=== PATIENT | male | born 1940 | race African-American/Black ===

== ENCOUNTER 2017-12-28 11:01 | Emergency (ER) | payer MEDICARE ==
[~2017-12-28] VITALS: Ht 172.7 cm; Wt 100.0 kg
[2017-12-28] MEDS ORDERED: GABA-529 PO (11:06)
[2017-12-28] MEDS ORDERED: TIOT18CA3 IH (11:06)
[2017-12-28] MEDS ORDERED: LOSA25TA12 PO (11:06)
[2017-12-28 12:41] LABS: BASOPHILS % 0.2 % (0.0-2.0); EOSINOPHILS % 0.5 % (0.0-5.0); HEMATOCRIT. 38.2 % (42.0-52.0); HEMOGLOBIN. 12.8 g/dL (14.0-18.0); MEAN CORPUSCULAR HEMOGLOBIN 29.6 pg (28.0-32.0); MEAN CORPUSCULAR VOLUME 88.4 fL (80.0-94.0); MEAN PLATELET VOLUME 8.1 fl (7.4-10.4); MONOCYTES % 11.6 % (2.0-8.0); NEUTROPHILS % 66.7 % (40.0-76.0); PLATELET 169 x1000/uL (130-400); RED BLOOD CELL COUNT 4.32 mill/uL (4.7-6.1); RED CELL DISTRIBUTION WIDTH 14.9 % (11.6-14.6)
[2017-12-28 12:44] LABS: CHLORIDE 104 mEq/L (98-107)
[2017-12-28 12:45] LABS: PROTHROMBIN TIME 10.2 sec (9.1-11.1)
[2017-12-28 12:48] LABS: CLARITY URINE CLEAR (CLEAR); COLOR URINE YELLOW (YELLOW); KETONES URINE 1+ (NEGATIVE); LEUKOCYTE ESTERASE URINE NEGATIVE (NEGATIVE); NITRITE URINE NEGATIVE (NEGATIVE); OCCULT BLOOD URINE NEGATIVE (NEGATIVE); PH URINE 8.5 (4.5-8.0); PROTEIN URINE 3+ (NEGATIVE); SPECIFIC GRAVITY URINE 1.021 (1.005-1.030); UROBILINOGEN URINE 0.2 E.U./dL (0.2-1.0)
[2017-12-28] MEDS ORDERED: ALBUTEROL (0.083%) 2.5MG/3ML NEB HHN STA (13:33)
[2017-12-28] MEDS ORDERED: IPRATROPIUM BROMIDE (0.02%) 0.5MG/2.5ML NEB HHN STA (13:33)
[2017-12-28 15:52] VITALS: BP 128/90
== END 2017-12-28 15:56 | disposition home or self-care (01) ==
LOC: ER 11:01
DX: R55 Syncope and collapse (principal); R06.02 Shortness of breath; I44.0 Atrioventricular block, first degree; I49.3 Ventricular premature depolarization; D64.9 Anemia, unspecified; N28.9 Disorder of kidney and ureter, unspecified; E87.1 Hypo-osmolality and hyponatremia; J44.9 Chronic obstructive pulmonary disease, unspecified; F41.9 Anxiety disorder, unspecified; E11.9 Type 2 diabetes mellitus without complications; I10 Essential (primary) hypertension; E78.00 Pure hypercholesterolemia, unspecified; R56.9 Unspecified convulsions; Z79.899 Other long term (current) drug therapy
CPT/HCPCS: 36415; 71045; 80053; 81003; 83880; 84484; 85025; 85610; 93005; 94640; 99285; J7611

== ENCOUNTER 2018-01-10 11:17 | Emergency (ER) | payer MEDICARE ==
[~2018-01-10] VITALS: Ht 165.1 cm; Wt 110.0 kg
[~2018-01-10 11:17] MED LIST: GABA-529 PO; LOSA25TA12 PO; TIOT18CA3 IH
[2018-01-10] MEDS ORDERED: ONDANSETRON HCL 4MG/2ML INJ IV STA (11:44)
[2018-01-10] MEDS ORDERED: SODIUM CHLORIDE 0.9% 1,000 ML IV ONE (11:44)
[2018-01-10] MEDS ORDERED: MORPHINE SULFATE 4 MG/ML CPJ (NOT FOR IM USE) IV STA (11:44)
[2018-01-10 13:08] LABS: BASOPHILS % 0.3 % (0.0-2.0); EOSINOPHILS % 0.4 % (0.0-5.0); HEMATOCRIT. 38.7 % (42.0-52.0); HEMOGLOBIN. 12.7 g/dL (14.0-18.0); LYMPHOCYTES % 18.1 % (20.0-50.0); MEAN CORPUSCULAR HEMOGLOBIN 29.5 pg (28.0-32.0); MEAN CORPUSCULAR VOLUME 89.7 fL (80.0-94.0); MONOCYTES % 10.1 % (2.0-8.0); NEUTROPHILS % 71.1 % (40.0-76.0); RED BLOOD CELL COUNT 4.31 mill/uL (4.7-6.1)
[2018-01-10 13:09] LABS: CHLORIDE 109 mEq/L (98-107); PROTHROMBIN TIME 10.1 sec (9.1-11.1)
[2018-01-10 13:48] LABS: PLATELET 129 x1000/uL (130-400)
[2018-01-10 15:59] LABS: MEAN PLATELET VOLUME 9.5 fl (7.4-10.4); PLATELET ESTIMATE SLIGHTLY DECREASED
[2018-01-10] MEDS ORDERED: LORAZEPAM 0.5MG TABLET PO ONE (16:00)
[2018-01-10 17:49] LABS: CLARITY URINE CLEAR (CLEAR); COLOR URINE YELLOW (YELLOW); KETONES URINE TRACE (NEGATIVE); LEUKOCYTE ESTERASE URINE NEGATIVE (NEGATIVE); NITRITE URINE NEGATIVE (NEGATIVE); OCCULT BLOOD URINE NEGATIVE (NEGATIVE); PH URINE 7.5 (4.5-8.0); PROTEIN URINE 2+ (NEGATIVE); SPECIFIC GRAVITY URINE 1.017 (1.005-1.030); UROBILINOGEN URINE 0.2 E.U./dL (0.2-1.0)
[2018-01-10 18:04] VITALS: BP 132/62
== END 2018-01-10 18:08 | disposition home or self-care (01) ==
LOC: ER 11:40 → CANBEDREQ 18:14
DX: R10.12 Left upper quadrant pain (principal); R10.32 Left lower quadrant pain; G89.29 Other chronic pain; K59.00 Constipation, unspecified; E86.0 Dehydration; N43.3 Hydrocele, unspecified; N28.9 Disorder of kidney and ureter, unspecified; I11.9 Hypertensive heart disease without heart failure; J44.9 Chronic obstructive pulmonary disease, unspecified; F41.9 Anxiety disorder, unspecified; Z85.46 Personal history of malignant neoplasm of prostate; Z98.1 Arthrodesis status; Z87.81 Personal history of (healed) traumatic fracture
CPT/HCPCS: 36415; 74176; 76870; 80053; 81003; 83605; 83690; 85025; 85610; 93976; 96361; 96374; 96375; 99285; J2270; J2405; J7030

== ENCOUNTER 2018-10-05 09:28 | Emergency (ER) | payer BC, MEDICARE ==
[~2018-10-05] VITALS: Ht 167.6 cm; Wt 105.0 kg
[2018-10-05 10:05] VITALS: BP 155/83
== END 2018-10-05 10:50 | disposition home or self-care (01) ==
LOC: ER 09:28
DX: F41.0 Panic disorder [episodic paroxysmal anxiety] (principal)
CPT/HCPCS: 99284

== ENCOUNTER 2018-10-12 15:39 | Inpatient (IN) | payer MEDICARE, BC ==
[~2018-10-12] VITALS: Ht 165.1 cm; Wt 102.6 kg
[~2018-10-12 15:39] MED LIST changes: -LOSA25TA12 PO; +LOSA25TA26 PO
[2018-10-12 20:03] LABS: BASOPHILS % 0.5 % (0.0-2.0); EOSINOPHILS % 0.7 % (0.0-5.0); HEMATOCRIT. 35.7 % (42.0-52.0); LYMPHOCYTES % 22.7 % (20.0-50.0); MEAN CORPUSCULAR HEMOGLOBIN 29.9 pg (28.0-32.0); MEAN CORPUSCULAR VOLUME 89.3 fL (80.0-94.0); MEAN PLATELET VOLUME 7.9 fl (7.4-10.4); MONOCYTES % 8.9 % (2.0-8.0); NEUTROPHILS % 67.2 % (40.0-76.0); PLATELET 144 x1000/uL (130-400); RED CELL DISTRIBUTION WIDTH 14.9 % (11.6-14.6)
[2018-10-12 20:08] LABS: CHLORIDE 109 mEq/L (98-107)
[2018-10-12] MEDS ORDERED: LORAZEPAM 1MG TABLET ONE (20:20)
[2018-10-12] MEDS ORDERED: LORAZEPAM 1MG TABLET PO SCH (21:43)
[2018-10-12] MEDS ORDERED: ASPIRIN 325MG EC TABLET PO ONE (22:15)
[2018-10-12] MEDS ORDERED: LORAZEPAM 2MG/ML CPJ IV PRN (23:45)
[2018-10-12] MEDS ORDERED: CLONIDINE 0.1MG TABLET PO PRN (23:45)
[2018-10-12] MEDS ORDERED: MORPHINE SULFATE 2 MG/ML CPJ (NOT FOR IM USE) IV PRN (23:45)
[2018-10-12] MEDS ORDERED: HYDROCODONE/ACETAMINOPHEN 5/325MG TABLET PO PRN (23:45)
[2018-10-12] MEDS ORDERED: ACETAMINOPHEN 325MG TABLET PO PRN (23:45)
[2018-10-12] MEDS ORDERED: ONDANSETRON HCL 4MG/2ML INJ IV PRN (23:45)
[2018-10-12] MEDS ORDERED: DOCUSATE SODIUM 100MG CAPSULE PO PRN (23:45)
[2018-10-12] MEDS ORDERED: IPRATROPIUM/ALBUTEROL 0.5-3(2.5)MG/3ML NEB INH PRN (23:45)
[2018-10-12] MEDS ORDERED: GUAIFENESIN 200MG/10ML SUGAR FREE UDC PO PRN (23:45)
[2018-10-13 01:05] VITALS: BP 143/84
[2018-10-13] MEDS ORDERED: MORPHINE SULFATE 4 MG/ML CPJ (NOT FOR IM USE) IV PRN (01:48)
[2018-10-13 04:00] VITALS: BP 128/73
[2018-10-13] MEDS ORDERED: ASPI-1158 PO (05:37)
[2018-10-13] MEDS ORDERED: AMLO10TA80 PO (05:37)
[2018-10-13] MEDS ORDERED: LORA-249 PO (05:37)
[2018-10-13] MEDS ORDERED: FURO-152 PO (05:37)
[2018-10-13] MEDS ORDERED: TRAZ-251 PO (05:37)
[2018-10-13 08:00] VITALS: BP 129/76
[2018-10-13] MEDS ORDERED: ENOXAPARIN 40MG/0.4ML SYR SUBCUT SCH (09:00)
[2018-10-13 09:16] LABS: BASOPHILS % 0.3 % (0.0-2.0); EOSINOPHILS % 0.9 % (0.0-5.0); HEMATOCRIT. 35.6 % (42.0-52.0); HEMOGLOBIN. 11.7 g/dL (14.0-18.0); LYMPHOCYTES % 19.4 % (20.0-50.0); MEAN CORPUSCULAR HEMOGLOBIN 29.3 pg (28.0-32.0); MEAN CORPUSCULAR VOLUME 88.8 fL (80.0-94.0); MONOCYTES % 10.8 % (2.0-8.0); NEUTROPHILS % 68.6 % (40.0-76.0); PLATELET 164 x1000/uL (130-400); RED CELL DISTRIBUTION WIDTH 14.8 % (11.6-14.6)
[2018-10-13] MEDS: ASPIRIN 81MG EC TABLET PO SCH (09:18)
[2018-10-13] MEDS: ENOXAPARIN 30MG/0.3ML SYR SUBCUT SCH ×2 (09:19→21:58)
[2018-10-13] MEDS: AMLODIPINE 10MG TABLET PO SCH (09:20)
[2018-10-13 09:47] LABS: CHLORIDE 110 mEq/L (98-107)
[2018-10-13 09:55] LABS: HDL CHOLESTEROL 91 mg/dL (40-59); LDL CHOLESTEROL 78 mg/dL (5-100)
[2018-10-13] MEDS ORDERED: NA PHOS,M-B/NA PHOS,DI-BA ENEMA 118ML PR NR (11:00)
[2018-10-13] MEDS ORDERED: MAGNESIUM HYDROXIDE 400MG/5ML 30ML UDC PO PRN (11:00)
[2018-10-13] MEDS ORDERED: IPRATROPIUM/ALBUTEROL 0.5-3(2.5)MG/3ML NEB HHN PRN (11:00)
[2018-10-13] MEDS ORDERED: LACTULOSE 20G/30ML UDC PO NR (11:00)
[2018-10-13] MEDS ORDERED: BENZONATATE 100MG CAPSULE PO PRN (11:00)
[2018-10-13] MEDS ORDERED: DEXTROSE 50% WATER 50ML SYRINGE IV PRN (11:45)
[2018-10-13] MEDS: METHYLPREDNISOLONE SOD SUCC 40 MG/ML VIAL IV SCH (11:48)
[2018-10-13] MEDS: LORATADINE 10MG TABLET PO SCH (11:48)
[2018-10-13] MEDS ORDERED: MORPHINE SULFATE 2 MG/ML CPJ (NOT FOR IM USE) IV PRN (11:49)
[2018-10-13 12:17] VITALS: BP 130/65
[2018-10-13] MEDS: BLOOD SUGAR DIAGNOSTIC STRIP TEST SCH ×3 (12:20→21:17)
[2018-10-13] MEDS: INSULIN LISPRO 100 UNITS/ML SUBCUT SCH ×3 (12:50→22:15)
[2018-10-13 16:43] VITALS: BP 124/74
[2018-10-13 20:00] VITALS: BP 125/65
[2018-10-14] VITALS: BP 126/71
[2018-10-14 04:00] VITALS: BP 136/79
[2018-10-14] MEDS: BLOOD SUGAR DIAGNOSTIC STRIP TEST SCH ×2 (06:24→12:20)
[2018-10-14] MEDS: INSULIN LISPRO 100 UNITS/ML SUBCUT SCH ×2 (07:50→12:24)
[2018-10-14 09:00] VITALS: BP 123/58
[2018-10-14] MEDS: METHYLPREDNISOLONE SOD SUCC 40 MG/ML VIAL IV SCH (09:14)
[2018-10-14] MEDS: AMLODIPINE 10MG TABLET PO SCH (09:28)
[2018-10-14] MEDS: ASPIRIN 81MG EC TABLET PO SCH (09:28)
[2018-10-14] MEDS: ENOXAPARIN 30MG/0.3ML SYR SUBCUT SCH (09:28)
[2018-10-14] MEDS: LORATADINE 10MG TABLET PO SCH (09:30)
[2018-10-14] MEDS ORDERED: TRAMADOL 50MG TABLET PO PRN (09:30)
[2018-10-14 14:12] VITALS: BP 123/58
== END 2018-10-14 15:38 | disposition home or self-care (01) | DRG 202 ==
LOC: ER 16:05 → EDBEDREQ 22:40 → EDBEDREQTM 22:40 → SUPCPDRO 23:34 → ENRESERV 10-13 → 6WST 10-13 01:18
PROVIDERS: ADMIT Hospitalist; ATTEND Hospitalist
DX: J20.9 Acute bronchitis, unspecified (principal); J44.1 Chronic obstructive pulmonary disease with (acute) exacerbation; J44.0 Chronic obstructive pulmonary disease with (acute) lower respiratory infection; E11.9 Type 2 diabetes mellitus without complications; I11.0 Hypertensive heart disease with heart failure; F41.9 Anxiety disorder, unspecified; M19.90 Unspecified osteoarthritis, unspecified site; I50.9 Heart failure, unspecified; K59.00 Constipation, unspecified; Z85.46 Personal history of malignant neoplasm of prostate; Z86.73 Personal history of transient ischemic attack (TIA), and cerebral infarction without residual deficits; Z92.3 Personal history of irradiation; Z87.891 Personal history of nicotine dependence; Z79.899 Other long term (current) drug therapy
CPT/HCPCS: 36415; 71045; 80061; 82962; 83880; 84484; 93005; 93306; 93970; 94640; 99285; J1650; J1815; J2060; J2920; J7620

== ENCOUNTER 2018-12-26 00:29 | Emergency (ER) | payer MEDICARE, BC ==
[~2018-12-26] VITALS: Ht 165.1 cm; Wt 96.0 kg
[~2018-12-26 00:29] MED LIST changes: +AMLO10TA80 PO; +ASPI-1158 PO; +FURO-152 PO; -GABA-529 PO; +LORA-249 PO; +TRAZ-251 PO
[2018-12-26 02:23] LABS: BASOPHILS % 0.4 % (0.0-2.0); EOSINOPHILS % 0.9 % (0.0-5.0); HEMATOCRIT. 34.6 % (42.0-52.0); HEMOGLOBIN. 11.5 g/dL (14.0-18.0); LYMPHOCYTES % 17.2 % (20.0-50.0); MEAN CORPUSCULAR HEMOGLOBIN 29.9 pg (28.0-32.0); MEAN CORPUSCULAR VOLUME 90.3 fL (80.0-94.0); MEAN PLATELET VOLUME 7.2 fl (7.4-10.4); MONOCYTES % 10.8 % (2.0-8.0); NEUTROPHILS % 70.7 % (40.0-76.0); PLATELET 148 x1000/uL (130-400); RED BLOOD CELL COUNT 3.84 mill/uL (4.7-6.1)
[2018-12-26 02:29] LABS: CHLORIDE 110 mEq/L (98-107)
[2018-12-26 08:48] VITALS: BP 129/72
== END 2018-12-26 08:51 | disposition short-term general hospital (02) ==
LOC: ER 00:29 → CANBEDREQ 06:30 → ER 08:51
DX: R53.1 Weakness (principal); R27.0 Ataxia, unspecified; Z91.81 History of falling
CPT/HCPCS: 36415; 71045; 82962; 83880; 84484; 93005; 99285

== ENCOUNTER 2019-02-09 08:34 | Emergency (ER) | payer MEDICARE, BC ==
[~2019-02-09] VITALS: Ht 172.7 cm; Wt 97.0 kg
[2019-02-09 09:36] VITALS: BP 130/72
== END 2019-02-09 09:41 | disposition home or self-care (01) ==
LOC: ER 09:12
DX: F41.9 Anxiety disorder, unspecified (principal)
CPT/HCPCS: 99284

== ENCOUNTER 2019-04-17 11:15 | Emergency (ER) | payer MEDICARE, BC ==
[~2019-04-17] VITALS: Ht 165.1 cm; Wt 93.0 kg
[2019-04-17] MEDS ORDERED: AMLODIPINE 10MG TABLET PO ONE (12:45)
[2019-04-17] MEDS ORDERED: ACETAMINOPHEN 325MG TABLET PO ONE (12:45)
[2019-04-17 13:43] LABS: BASOPHILS % 0.3 % (0.0-2.0); EOSINOPHILS % 0.6 % (0.0-5.0); HEMATOCRIT. 35.3 % (42.0-52.0); HEMOGLOBIN. 11.6 g/dL (14.0-18.0); LYMPHOCYTES % 21.4 % (20.0-50.0); MEAN CORPUSCULAR HEMOGLOBIN 29.9 pg (28.0-32.0); MEAN CORPUSCULAR VOLUME 90.7 fL (80.0-94.0); MONOCYTES % 10.1 % (2.0-8.0); NEUTROPHILS % 67.6 % (40.0-76.0); PLATELET 169 x1000/uL (130-400); RED BLOOD CELL COUNT 3.89 mill/uL (4.7-6.1); RED CELL DISTRIBUTION WIDTH 15.6 % (11.6-14.6)
[2019-04-17 13:50] LABS: CHLORIDE 112 mEq/L (98-107)
[2019-04-17 14:44] VITALS: BP 141/78
== END 2019-04-17 14:51 | disposition home or self-care (01) ==
LOC: ER 11:15
DX: R07.89 Other chest pain (principal); F41.9 Anxiety disorder, unspecified
CPT/HCPCS: 36415; 71045; 83735; 84484; 93005; 99284

== ENCOUNTER 2019-12-13 11:59 | Inpatient (IN) | payer MEDICARE, BC ==
[~2019-12-13] VITALS: Ht 165.1 cm; Wt 95.3 kg
[2019-12-13 13:02] LABS: BASOPHILS % 0.3 % (0.0-2.0); EOSINOPHILS % 0.9 % (0.0-5.0); HEMATOCRIT. 34.1 % (42.0-52.0); HEMOGLOBIN. 11.2 g/dL (14.0-18.0); LYMPHOCYTES % 22.2 % (20.0-50.0); MEAN CORPUSCULAR HEMOGLOBIN 29.9 pg (28.0-32.0); MEAN CORPUSCULAR VOLUME 90.8 fL (80.0-94.0); MEAN PLATELET VOLUME 7.4 fl (7.4-10.4); MONOCYTES % 11.5 % (2.0-8.0); NEUTROPHILS % 65.1 % (40.0-76.0); PLATELET 154 x1000/uL (130-400); RED BLOOD CELL COUNT 3.76 mill/uL (4.7-6.1); RED CELL DISTRIBUTION WIDTH 15.8 % (11.6-14.6)
[2019-12-13 13:09] LABS: CHLORIDE 110 mEq/L (98-107)
[2019-12-13] MEDS ORDERED: ASPIRIN 325MG EC TABLET PO ONE (13:45)
[2019-12-13 17:57] VITALS: BP 121/57
[2019-12-13] MEDS ORDERED: ACETAMINOPHEN 325MG TABLET PO PRN (19:30)
[2019-12-13] MEDS ORDERED: LORAZEPAM 2MG/ML CPJ IV PRN (19:30)
[2019-12-13] MEDS ORDERED: GUAIFENESIN 200MG/10ML SUGAR FREE UDC PO PRN (19:30)
[2019-12-13] MEDS ORDERED: HYDRALAZINE 20MG/ML VIAL IV PRN (19:30)
[2019-12-13] MEDS ORDERED: CLONIDINE 0.1MG TABLET PO PRN (19:30)
[2019-12-13] MEDS ORDERED: DOCUSATE SODIUM 100MG CAPSULE PO PRN (19:30)
[2019-12-13] MEDS ORDERED: ONDANSETRON HCL 4MG/2ML INJ IV PRN (19:30)
[2019-12-13] MEDS ORDERED: MAGNESIUM/ALUMINUM HYDROXIDE/SIMETHICONE 30ML UDC PO PRN (19:30)
[2019-12-13] MEDS ORDERED: DIPHENHYDRAMINE 50MG/ML VIAL IV PRN (19:30)
[2019-12-13] MEDS ORDERED: IPRATROPIUM/ALBUTEROL 0.5-3(2.5)MG/3ML NEB HHN PRN (19:30)
[2019-12-13] MEDS ORDERED: HYDROCODONE/ACETAMINOPHEN 10/325MG TABLET PO PRN (19:44)
[2019-12-13] MEDS ORDERED: MORPHINE SULFATE 2 MG/ML CPJ (NOT FOR IM USE) IV PRN (19:44)
[2019-12-13 20:00] VITALS: BP 117/69
[2019-12-13] MEDS: ENOXAPARIN 40MG/0.4ML SYR SUBCUT SCH (21:14)
[2019-12-13] MEDS: SODIUM CHLORIDE 0.9% INJ 3ML FLUSH IVF SCH (21:17)
[2019-12-14] VITALS: BP 140/62
[2019-12-14 00:12] LABS: CREATINE KINASE 135 IU/L (39-308)
[2019-12-14 00:13] LABS: CREATINE KINASE MB FRACTION 1.6 ng/mL (0.5-3.6)
[2019-12-14 04:00] VITALS: BP 157/86
[2019-12-14 07:51] VITALS: BP 152/73
[2019-12-14] MEDS: SODIUM CHLORIDE 0.9% INJ 3ML FLUSH IVF SCH ×4 (09:03→20:38)
[2019-12-14] MEDS ORDERED: POLYETHYLENE GLYCOL 3350 (17GM) 1 DOSE PACK PO SCH (11:30)
[2019-12-14] MEDS: DOCUSATE SODIUM 100MG CAPSULE PO SCH (11:30)
[2019-12-14] MEDS ORDERED: ACETAMINOPHEN WITH CODEINE 300/30MG TABLET PO PRN (11:30)
[2019-12-14 11:39] LABS: BASOPHILS % 0.4 % (0.0-2.0); EOSINOPHILS % 0.9 % (0.0-5.0); HEMATOCRIT. 36.4 % (42.0-52.0); LYMPHOCYTES % 22.1 % (20.0-50.0); MEAN CORPUSCULAR HEMOGLOBIN 30.1 pg (28.0-32.0); MEAN CORPUSCULAR VOLUME 91.6 fL (80.0-94.0); MEAN PLATELET VOLUME 7.9 fl (7.4-10.4); MONOCYTES % 9.8 % (2.0-8.0); NEUTROPHILS % 66.8 % (40.0-76.0); PLATELET 150 x1000/uL (130-400); RED BLOOD CELL COUNT 3.98 mill/uL (4.7-6.1); RED CELL DISTRIBUTION WIDTH 15.8 % (11.6-14.6)
[2019-12-14 11:49] LABS: CHLORIDE 109 mEq/L (98-107)
[2019-12-14 11:58] LABS: CREATINE KINASE 148 IU/L (39-308)
[2019-12-14 12:00] VITALS: BP 150/80
[2019-12-14 12:00] LABS: CREATINE KINASE MB FRACTION 1.8 ng/mL (0.5-3.6)
[2019-12-14] MEDS ORDERED: BUSPIRONE HCL 5MG TABLET PO SCH (12:00)
[2019-12-14] MEDS: ATORVASTATIN CALCIUM 40MG TABLET PO SCH ×2 (14:18→14:23)
[2019-12-14] MEDS: MAGNESIUM HYDROXIDE 400MG/5ML 30ML UDC PO PRN (14:18)
[2019-12-14] MEDS: BUSPIRONE HCL 5MG TABLET PO SCH (14:19)
[2019-12-14] MEDS: ASPIRIN 81MG TABLET PO SCH (14:19)
[2019-12-14] MEDS: METOPROLOL TARTRATE 25MG TABLET PO SCH ×2 (14:20→20:35)
[2019-12-14] MEDS: MONTELUKAST SODIUM 10MG TABLET PO SCH (14:20)
[2019-12-14] MEDS: FUROSEMIDE 40MG TABLET PO SCH (14:20)
[2019-12-14] MEDS: AMLODIPINE 5MG TABLET PO SCH (14:21)
[2019-12-14] MEDS: PANTOPRAZOLE 40MG DR TABLET PO SCH (14:21)
[2019-12-14] MEDS: LOSARTAN POTASSIUM 50 MG TABLET PO SCH (14:45)
[2019-12-14] MEDS: FLUTICASONE PROPIONATE 50MCG/SPRAY BOTTLE BOTHNSTRLS SCH (14:49)
[2019-12-14] MEDS: AZELASTINE HCL 137MCG/SPRAY NASAL PUMP BOTHNSTRLS SCH (14:49)
[2019-12-14] MEDS ORDERED: BUDESONIDE 0.5MG/2ML NEB HHN SCH (17:00)
[2019-12-14 20:00] VITALS: BP 120/59
[2019-12-14] MEDS: ENOXAPARIN 40MG/0.4ML SYR SUBCUT SCH (20:39)
[2019-12-14] MEDS ORDERED: LORAZEPAM 0.5MG TABLET PO PRN (21:00)
[2019-12-15] VITALS: BP 118/60
[2019-12-15] MEDS: MAGNESIUM HYDROXIDE 400MG/5ML 30ML UDC PO PRN (01:51)
[2019-12-15 04:00] VITALS: BP 122/63
[2019-12-15] MEDS: PANTOPRAZOLE 40MG DR TABLET PO SCH (06:03)
[2019-12-15] MEDS: SODIUM CHLORIDE 0.9% INJ 3ML FLUSH IVF SCH ×2 (06:03→13:08)
[2019-12-15 07:51] VITALS: BP 112/67
[2019-12-15] MEDS: FLUTICASONE PROPIONATE 50MCG/SPRAY BOTTLE BOTHNSTRLS SCH (08:21)
[2019-12-15] MEDS: ASPIRIN 81MG TABLET PO SCH (08:21)
[2019-12-15] MEDS: BUSPIRONE HCL 5MG TABLET PO SCH (08:21)
[2019-12-15] MEDS: FUROSEMIDE 40MG TABLET PO SCH (08:21)
[2019-12-15] MEDS: AZELASTINE HCL 137MCG/SPRAY NASAL PUMP BOTHNSTRLS SCH (08:21)
[2019-12-15] MEDS: DOCUSATE SODIUM 100MG CAPSULE PO SCH (08:22)
[2019-12-15] MEDS: LOSARTAN POTASSIUM 50 MG TABLET PO SCH (08:22)
[2019-12-15] MEDS: MONTELUKAST SODIUM 10MG TABLET PO SCH (08:22)
[2019-12-15] MEDS: METOPROLOL TARTRATE 25MG TABLET PO SCH (08:23)
[2019-12-15] MEDS: AMLODIPINE 5MG TABLET PO SCH (08:23)
[2019-12-15 11:51] VITALS: BP 100/51
[2019-12-15 11:56] VITALS: BP 100/51
[2019-12-15 12:03] VITALS: BP 100/51
[2019-12-16] MEDS ORDERED: FAMOTIDINE 20MG TABLET PO SCH (07:10)
== END 2019-12-15 15:00 | disposition home or self-care (01) | DRG 391 ==
LOC: ER 11:59 → 8WST 13:44 → ENRESERV 16:01 → ER 16:48 → UNDOADMIN 19:19 → 8WST 19:19
PROVIDERS: ADMIT Internal Medicine; ATTEND Internal Medicine
DX: K21.9 Gastro-esophageal reflux disease without esophagitis (principal); N17.0 Acute kidney failure with tubular necrosis; I50.31 Acute diastolic (congestive) heart failure; R07.89 Other chest pain; F41.1 Generalized anxiety disorder; I11.0 Hypertensive heart disease with heart failure; D64.9 Anemia, unspecified; E78.5 Hyperlipidemia, unspecified; J44.9 Chronic obstructive pulmonary disease, unspecified; Z85.46 Personal history of malignant neoplasm of prostate; Z86.73 Personal history of transient ischemic attack (TIA), and cerebral infarction without residual deficits; Z92.3 Personal history of irradiation; Z79.899 Other long term (current) drug therapy; Z79.82 Long term (current) use of aspirin
CPT/HCPCS: 36415; 71045; 80048; 80053; 82550; 82553; 83880; 84484; 85025; 93005; 93970; 94640; 99285; J1200; J1650; J2060; J7626